=== PATIENT | male | born 1935 | race Caucasian/White ===

== ENCOUNTER → 2019-11-01 12:24 | Outpatient (BNVA) | payer MEDICARE, OTHER, SELFPAY | PROVIDERS: Family Provider Family Medicine; PCP Family Medicine; Visit Provider Urology | DX: R97.20 Elevated prostate specific antigen [PSA] (principal) | CPT/HCPCS: 84153 ==

== ENCOUNTER → 2020-11-17 09:19 | Outpatient (BNVA) | payer MEDICARE, OTHER, SELFPAY | PROVIDERS: Family Provider Family Medicine; PCP Nurse Practitioner Family; Visit Provider Urology | DX: R97.20 Elevated prostate specific antigen [PSA] (principal) | CPT/HCPCS: 84153 ==

== ENCOUNTER → 2021-01-14 09:09 | Outpatient (BNVA) | payer MEDICARE, OTHER, SELFPAY | PROVIDERS: Family Provider Family Medicine; PCP Registered Nurse; Visit Provider Registered Nurse | DX: I25.10 Atherosclerotic heart disease of native coronary artery without angina pectoris (principal); E11.9 Type 2 diabetes mellitus without complications; I10 Essential (primary) hypertension; I48.19 Other persistent atrial fibrillation | CPT/HCPCS: 80053; 83036; 85025 ==

== ENCOUNTER → 2021-03-05 16:32 | Outpatient (BNVA) | payer MEDICARE, OTHER, SELFPAY | PROVIDERS: Family Provider Family Medicine; PCP Registered Nurse; Visit Provider Nurse Practitioner Family | DX: R33.9 Retention of urine, unspecified (principal); R39.15 Urgency of urination | CPT/HCPCS: 81003; 87086 ==

== ENCOUNTER 2021-07-21 13:42 | Emergency (ER) | payer MEDICARE, OTHER, SELFPAY ==
[2021-07-21 13:52] VITALS: BP 168/118; PULSE 118; RESP 21; TEMP 36.6; O2SAT 96; BMI 25.8
--- NOTE | 2021-07-21 13:54 | CT_ITS ---
WS: [id number] CT HEAD TECHNIQUE: Noncontrast CT of the head obtained from the skullbase to the vertex. CLINICAL INFORMATION: TIA COMPARISON: CT 2017 DLP: 1616.[address] scans at [facility] use at least one of these dose optimization techniques: automated e xposure control; mA and/or kV adjustment per patient size (includes targeted exams where dose is matc hed to clinical indication); or iterative reconstruction. FINDINGS: No evidence of intracranial hemorrhage or mass effect. Ventricular system and basal cisterns are dumont nt. Moderate small vessel changes with moderate parenchymal volume loss. 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 Intracranial vascular calcification. No extra-axial fluid collections. No evidence of mass or mass effect. Chronic opacification right sphenoid sinus and posterior ethmoid air cells. Mastoid air cells well ae rated. CT/CT head wo con* [id number] IMPRESSION: 1. No evidence of intracranial hemorrhage or mass effect. 2. Moderate small vessel changes. Moderate parenchymal volume loss. 3. Chronic lacunar infarcts left thalamus and left caudate. 4. No acute intracranial findings.
--- NOTE | 2021-07-21 13:55 | ECG_ITS ---
[facility] Test Date: 2021-07-21 Pat Name: Enrique Modi Department: Room: Gender: Male Eclectic Doctor: : 1935 Requested By: Jez Orona Order Number: [id number] Marlon MD: Alycia Stinson M.D. Measurements Intervals [place] Rate: 75 P: 56 [place]: 197 QRS: 42 QRSD: 85 T: 68 QT: 409 QTc: 458 Interpretive Statements SINUS RHYTHM NONSPECIFIC ST & T-WAVE ABNORMALITY Compared to ECG 11/05/2014 13:15:28 Myocardial infarct finding no longer present Possible ischemia no longer present T-wave abnormality still present Electronically Signed On 07-21-2021 17:54:29 GUITAR TEACHER by Alycia Stinson M.D. [id number]
[2021-07-21] MEDS: enalaprilat 1.25 mg/mL Inj IVP (14:09)
[2021-07-21 14:14] LABS: Basophils % 0.6 %; Eosinophils # 0.1 10^3/uL (0.0-0.8); Eosinophils % 1.3 %; Hematocrit 39.8 % (42.0-52.0); Hemoglobin 12.4 g/dL (11.7-16.6); Lymphocytes # 1.1 10^3/uL (0.8-4.8); Lymphocytes % 15.5 %; Mean Corpuscular HGB Conc 31.2 g/dL (30.0-36.0); Mean Corpuscular Volume 83.4 fl (80-94); Mean Platelet Volume 12.3 fL (7.4-10.4); Monocytes # 0.6 10^3/uL (0.2-0.9); Monocytes % 7.8 %; Neutrophils # 5.29 10^3/uL (1.8-7.7); Neutrophils % 74.5 %; Nucleated Red Blood Cells % 0 %; Platelet Count 231 10^3/cmm (130-400); Red Blood Count 4.77 10^6/uL (4.1-5.3); Red Cell Distribution Width 14.6 % (12.1-15.1); White Blood Count 7.1 10^3/uL (4.0-10.0)
--- NOTE | 2021-07-21 14:15 | PC.NURSE ---
PT PLACED ON CONTINUOUS SPO2, NIBP, AND CM.
--- NOTE | 2021-07-21 14:16 | PC.NURSE ---
PT TO CT VIA STRETCHER AND END FRAZER.
[2021-07-21 14:24] LABS: Add Urine Microscopic? NO; Charge for UA Resulting for Rev
[2021-07-21 14:29] LABS: Bilirubin Urine Neg (Negative); Blood Urine Neg (Negative); Glucose Urine UA Norm (Normal); Ketones Urine Negative (Negative); Leukocyte Esterase Urine Negative (Negative); Nitrate Urine Negative (Negative); Protein Urine Neg (Negative); Urine Appearance Clear (CLEAR); Urine Color Yellow (Yellow); Urobilinogen Urine Norm (Negative); pH Urine 7 (5-7)
[2021-07-21 14:36] LABS: Slide Review Slide Review Perform
[2021-07-21 14:37] LABS: Alanine Aminotransferase 8 U/L (0-41); Albumin Level 4.3 g/dL (3.5-5.2); Alkaline Phosphatase 71 IU/L (40-130); Aspartate Amino Transferase 13 U/L (0-40); Blood Urea Nitrogen 15 mg/dL (8-23); Carbon Dioxide 21 mmol/L (22-29); Chloride 105 mmol/L (98-107); Creatine Phosphokinase 63 U/L (39-308); Creatinine Clr Calc Pharmacy 74.3349; Globulin 2.6 g/dL (1.3-4.6); Glucose 98 mg/dL (65-115); Potassium 4.7 mmol/L (3.5-5.1); Total Bilirubin 0.4 mg/dL (0.15-1.2); Total Protein 6.9 g/dL (6.6-8.7)
[2021-07-21 14:38] LABS: Troponin(5th) Baseline 21 ng/L (0-15)
--- NOTE | 2021-07-21 14:46 | PC.NURSE ---
REPORT GIVEN TO MIREYA BROWN ASSUMED CARE.
[2021-07-21 14:48] LABS: Anion Gap 18.7 (5-19); Osmolality Calculated 291 mOsm/kg (285-295); Sodium 140 mmol/L (136-145)
[2021-07-21 14:54] VITALS: BP 178/88; PULSE 74; RESP 18; O2SAT 97
--- NOTE | 2021-07-21 15:10 | W.ED.NEUROSD ---
HPI - Neuro Symptoms/Deficit General: Chief Complaint: Altered Mental Status Stated Complaint: TIA Time Seen by Provider: 07/21/21 13:50 Source: patient History of Present Illness: HPI Narrative: 86-year-old male presents emergency room via EMS. At about 1239 a feeling of some left-sided facial droop and right arm and leg weakness. EMS was called the time he arrived here his symptoms had completely resolved. His blood sugar was 135 his blood pressure was elevated. Is able to answer all questions appropriately and has a completely normal exam. Onset (ago): hour(s) Last Observed Normal: 12:39 Timing confirmed by: family member Location: left face, right arm, left leg and right leg Severity: mild Quality: weak Relieving factors: time Exacerbating factors: none Associated symptoms: Deny chest pain, cough, diaphoresis, fevers/chills, headache(s), anorexia, malaise, seizures, short of breath, syncope, tingling, vertigo, vomiting or weakness Treatments Prior to Arrival: none Review of Systems Const: Denies: malaise or diaphoresis ENMT: Denies: throat pain, ear or mastoid pain, nasal discharge or nasal congestion Card: Denies: chest pain or syncope Resp: Denies: dyspnea, productive cough or non-productive cough GI: Denies: vomiting : Denies: flank pain, dysuria, urinary frequency or urinary urgency Skin/Breast: Denies: rash or pruritus Neuro: Denies: headache(s) or vertigo PFS ED PFSH: Medical History Atrial fibrillation Diabetes Elevated PSA Essential hypertension Gross hematuria History of nonmelanoma skin cancer Incomplete bladder emptying Surgical History S/P cataract extraction S/P placement of cardiac pacemaker Family History Father , 57 No problems noted. Mother , 59 No problems noted. Social History Alcohol intake: never Adopted: No Caregiver/support person: No Lives independently: Yes Marital status: / Current occupational status: retired History of recent travel: No Current gender identity: Male NIH stroke score NIHSS: Level Of Consciousness - 1a: 0 Level Of Consciousness Questions - 1b: Both Correct Level Of Consciousness Commands - 1c: Both Correct Best Gaze - 2: Normal Visual Almanza - 3: No Visual Loss Facial Palsy - 4: Normal Motor Arm Right - 5: No Drift Motor Arm Left - 5: No Drift Motor Leg Right - 6: No Drift Motor Leg Left - 6: No Drift Limb Ataxia - 7: Absent Sensory - 8: Normal Best Language - 9: No Aphasia Dysarthia - 10: Normal Extinction And Inattention - 11: 0 Score: Total Score: 0 Physical Exam Const: COMMON NORMALS: no acute distress GENERAL APPEARANCE: cooperative and comfortable ORIENTATION/CONSCIOUSNESS: Yes awake, Yes oriented to person, Yes oriented to place and Yes oriented to time HENMT: COMMON NORMALS: normocephalic, atraumatic, hearing grossly normal bilaterally, external ears normal, EAC's normal, TM's normal bilaterally, Normal nasal mucous membranes and turbinates present, moist oral mucous membranes and oropharynx normal HEAD & SCALP: normocephalic and atraumatic NOSE: Normal nasal mucous membranes and turbinates present EXTERNAL EAR: Yes external ears normal EXTERNAL AUDITORY CANAL: EAC's normal TYMPANIC MEMBRANE: TM's normal bilaterally Neck/C-Spine: COMMON NORMALS: no JVD Resp: COMMON NORMALS: normal respiratory effort, No retractions, No use of accessory muscles and clear to auscultation bilaterally AUSCULTATION: clear to auscultation bilaterally Cardio: COMMON NORMALS: no JVD, regular rate, regular rhythm and No murmurs present (Cardio) RATE: regular rate RHYTHM: regular rhythm GI: COMMON NORMALS: Soft to palpation and No hepatosplenomegaly present AUSCULTATION: Yes normoactive bowel sounds PALPATION: Yes Soft to palpation, No Tenderness to palpation present (GI), No Guarding due to palpation present (GI) and Yes No hepatosplenomegaly present Extremity: COMMON NORMALS: normal to inspection, capillary refill normal, no clubbing, cyanosis or edema, no calf tenderness and no pedal edema Neuro: SENSORIUM/ORIENTATION: Yes oriented to person, Yes oriented to place and Yes oriented to time Skin: COMMON NORMALS: no rashes or lesions noted GENERAL SKIN EXAM: no rashes or lesions noted Course Vital Signs: Vital signs: Vital Signs Temperature 97.8 F 07/21/21 13:52 Pulse Rate 69 07/21/21 17:44 Respiratory Rate 18 07/21/21 17:44 Blood Pressure 174/95 07/21/21 17:44 Pulse Oximetry 97 07/21/21 17:44 MDM - Neuro Symptoms/Deficit MDM Narrative: Medical decision making narrative: Symptoms completely resolved at this point. Will discharge home on amlodipine 5 mg daily again have him increase the metoprolol to 50 mg daily. Like him to follow-up with his primary care doctor within the next week. Return if he has further problems. (At the time I signed the chart and noted that the Toprol-XL had appeared on the discharge instructions but was not on the ER note itself. I added to the note. It is present on the original discharge instructions was added to show in the note of medication change that was made.) Lab Data: Labs: Lab Results 07/21/21 07/21/21 07/21/21 14:04 14:04 14:04 WBC 7.1 10^3/uL 10^3/ uL (4.0-10.0) RBC 4.77 10^6/uL 10^6 /uL (4.1-5.3) Hgb 12.4 g/dL g/dL (11.7-16.6) Hct 39.8 % L % (42.0-52.0) MCV 83.4 fl fl (80-94) MCH 26.0 pg L pg (28.0-34.0) MCHC 31.2 g/dL g/dL (30.0-36.0) RDW 14.6 % % (12.1-15.1) Plt Count 231 10^3/cmm 10^3 /cmm (130-400) MPV 12.3 fL H fL (7.4-10.4) Neut % (Auto) 74.5 % % Lymph % (Auto) 15.5 % % [place] % (Auto) 7.8 % % Eos % (Auto) 1.3 % % Baso % (Auto) 0.6 % % Neut # (Auto) 5.29 10^3/uL 10^3 /uL (1.8-7.7) Lymph # (Auto) 1.1 10^3/uL 10^3/ uL (0.8-4.8) [place] # (Auto) 0.6 10^3/uL 10^3/ uL (0.2-0.9) Eos # (Auto) 0.1 10^3/uL 10^3/ uL (0.0-0.8) Baso # (Auto) 0.0 10^3/uL 10^3/ uL (0.0-0.1) Nucleated RBC % (a uto) 0 % % Nucleated RBCs # 0.0 /100WBC /100W BC Sodium 140 mmol/L mmol/L (136-145) Potassium 4.7 mmol/L mmol/L (3.5-5.1) Chloride 105 mmol/L mmol/L (98-107) Carbon Dioxide 21 mmol/L L mmol/ L (22-29) Anion Gap 18.7 (5-19) BUN 15 mg/dL mg/dL (8-23) Creatinine 0.8 mg/dL mg/dL (0.7-1.2) GFR Calculation Not Reportable Glucose 98 mg/dL mg/dL (65-115) Calculated Osmolal ity 291 mOsm/kg mOsm/ kg (285-295) Calcium 9.0 mg/dL mg/dL (8.5-10.5) Total Bilirubin 0.4 mg/dL mg/dL (0.15-1.2) AST 13 U/L U/L (0-40) ALT 8 U/L U/L (0-41) Alkaline Phosphata se 71 IU/L IU/L (40-130) Creatine Kinase 63 U/L U/L (39-308) Troponin T Baselin e 21 ng/L H ng/L (0-15) Troponin T 120 Min bobo Delta Troponin T Total Protein 6.9 g/dL g/dL (6.6-8.7) Albumin 4.3 g/dL g/dL (3.5-5.2) Globulin 2.6 g/dL g/dL (1.3-4.6) Urine Color Urine Appearance Urine pH Ur Specific Gravit y Urine Protein Urine Glucose (UA) Urine Ketones Urine Blood Urine Nitrate Urine Bilirubin Urine Urobilinogen Ur Leukocyte Kita ase 07/21/21 07/21/21 14:13 16:08 WBC RBC Hgb Hct MCV MCH MCHC RDW Plt Count MPV Neut % (Auto) Lymph % (Auto) [place] % (Auto) Eos % (Auto) Baso % (Auto) Neut # (Auto) Lymph # (Auto) [place] # (Auto) Eos # (Auto) Baso # (Auto) Nucleated RBC % (a uto) Nucleated RBCs # Sodium Potassium Chloride Carbon Dioxide Anion Gap BUN Creatinine GFR Calculation Glucose Calculated Osmolal ity Calcium Total Bilirubin AST ALT Alkaline Phosphata se Creatine Kinase Troponin T Baselin e Troponin T 120 Min bobo 20.30 ng/L H ng/L (0-15) Delta Troponin T -0.70 ABS# L ABS# (0-10) Total Protein Albumin Globulin Urine Color Yellow (Yellow) Urine Appearance Clear (CLEAR) Urine pH 7 (5-7) Ur Specific Gravit y 1.000 L (1.005-1.030) Urine Protein Neg (Negative) Urine Glucose (UA) Norm (Normal) Urine Ketones Negative (Negative) Urine Blood Neg (Negative) Urine Nitrate Negative (Negative) Urine Bilirubin Neg (Negative) Urine Urobilinogen Norm mg/dL mg/dL (Negative) Ur Leukocyte Kita ase Negative (Negative) Discharge Plan Discharge Patient Disposition: Home Clinical Impression: Accelerated hypertension, TIA (transient ischemic attack) Condition: Stable Prescriptions: New amlodipine 5 mg tablet 5 mg PO DAILY Qty: 30 RF: 0 Toprol XL 50 mg tablet extended release 24 hr 50 mg PO DAILY Qty: 30 RF: 0 Discontinued metoprolol succinate 25 mg tablet extended release 24 hr 25 mg PO DAILY Qty: 90 RF: 3 No Action Complete Multivitamin Tablet 1 tab PO DAILY RF: 0 lovastatin 40 mg tablet 80 mg PO .HS RF: 0 gabapentin 300 mg capsule 600 mg PO .HS RF: 0 magnesium oxide,aspartate,citr 400 mg magnesium capsule PO RF: 0 calcium citrate 250 mg calcium tablet 250 mg PO DAILY RF: 0 ascorbic acid (vitamin C) 500 mg capsule PO RF: 0 omeprazole 10 mg capsule,delayed release(DR/EC) 10 mg PO DAILY RF: 0 sotalol 160 mg tablet 160 mg PO BID Qty: 135 RF: 3 metoprolol succinate 25 mg tablet extended release 24 hr 25 mg PO DAILY RF: 0 Xarelto 20 mg tablet See Rx Instructions .ROUTE .COMPLEX Qty: 90 RF: 3 Januvia 50 mg tablet 50 mg PO DAILY Qty: 90 RF: 1 mupirocin 2 % ointment 1 applic topical TID Qty: 22 RF: 1 valsartan 160 mg tablet 160 mg PO BID Qty: 180 RF: 3 Discharge Orders: Discharge ED (Routine); Ordered 07/21/21 Ordered By: Jez Garcia Referrals: Aysha Goff FNP [Primary Care Provider] - Patient Instructions: Opioid Safety Activity Restrictions/Additional Instructions: Follow-up with your primary care doctor within the next 3 days to reevaluate blood pressure. Coding Level of Care Code ED Tubing Mill Setter for Srinivasa Fwd Exam Comprehensive
--- NOTE | 2021-07-21 15:55 | ECG_ITS ---
[facility] Test Date: 2021-07-21 Pat Name: Enrique Modi Department: Room: Gender: Male Drone Operator: : 1935 Requested By: Jez Orona Order Number: [id number] Marlon MD: Alycia Stinson M.D. Measurements Intervals [place] Rate: 67 P: 57 [place]: 192 QRS: 48 QRSD: 89 T: 72 QT: 406 QTc: 431 Interpretive Statements SINUS RHYTHM WITH OCCASIONAL SUPRAVENTRICULAR PREMATURE COMPLEXES POSSIBLE LEFT ATRIAL ENLARGEMENT [-0.1mV P-WAVE IN V1/V2] NONSPECIFIC ST & T-WAVE ABNORMALITY Compared to ECG 07/21/2021 14:44:32 No significant changes Electronically Signed On 07-21-2021 17:59:03 ARCHIVAL RECORDS CLERK by Alycia Stinson M.D. [id number]
[2021-07-21] MEDS: amlodipine 10 mg Tablet PO (16:11)
[2021-07-21] MEDS: metoprolol succinate ER (24 HR) 50 mg Tablet 25 MG PO (16:12)
[2021-07-21 17:44] VITALS: BP 174/95; PULSE 69; RESP 18; O2SAT 97
== END 2021-07-21 17:25 | disposition home or self-care (01) ==
PROVIDERS: Emergency Provider Family Medicine; PCP Nurse Practitioner Family
DX: G45.9 Transient cerebral ischemic attack, unspecified (principal); I10 Essential (primary) hypertension; E11.9 Type 2 diabetes mellitus without complications; Z95.0 Presence of cardiac pacemaker
CPT/HCPCS: 70450; 80053; 81003; 82550; 84484; 85025; 93005; 96374; 99283; J3490

== ENCOUNTER 2021-09-17 11:10 | Emergency (ER) | payer MEDICARE, OTHER, SELFPAY ==
[2021-09-17 11:24] VITALS: PULSE 102; RESP 16; TEMP 36.3; O2SAT 100; BMI 24.3
--- NOTE | 2021-09-17 11:28 | ECG_ITS ---
[facility] Test Date: 2021-09-17 Pat Name: Enrique Modi Department: Room: Gender: Male Pillow Filler: : 1935 Requested By: Terrence Wolfe Order Number: [id number] Mason MD: Alycia Stinson M.D. Measurements Intervals [place] Rate: 113 P: [place]: QRS: 51 QRSD: 90 T: 38 QT: 321 QTc: 442 Interpretive Statements ATRIAL FIBRILLATION WITH RAPID VENTRICULAR RESPONSE MODERATE ST DEPRESSION [0.05+ mV ST DEPRESSION] Compared to ECG 07/21/2021 16:15:15 ST (T wave) deviation now present Sinus rhythm no longer present T-wave abnormality no longer present Electronically Signed On 09-17-2021 21:58:33 LEAD PAINTER by Alycia Stinson M.D. [id number]
--- NOTE | 2021-09-17 11:28 | XRR_ITS ---
PROCEDURE INFORMATION: Exam: XR Chest Exam date and time: 09/17/2021 11:28 AM Age: 86 years old Clinical indication: Other: Syncope TECHNIQUE: Imaging protocol: XR of the chest. Views: 1 view. COMPARISON: CR Chest 2 views* [id number] 12/07/2018 9:41 AM FINDINGS: Tubes, catheters and devices: A permanent sequential pacemaker appears intact. Lungs: Unremarkable. No consolidation. Pleural spaces: Unremarkable. No pleural effusion. No pneumothorax. Heart/Mediastinum: Unremarkable. No cardiomegaly. Bones/joints: Unremarkable. XR/XR chest 1V portable [id number] IMPRESSION: No significant cardiopulmonary abnormality.
--- NOTE | 2021-09-17 11:28 | CT_ITS ---
WS: [id number] CT HEAD NONCONTRAST HISTORY: Patient fell. Antiplatelet usage. TECHNIQUE: Contiguous axial imaging performed through the brain in 2.5 mm imaging. Bone and soft tiss ue windows. Sagittal and coronal reformats reviewed. All CT scans at [facility] use at least one of these dose optimization techniques: automated exposure control; mA and/or kV adjustment per pa tient size (includes targeted exams where dose is matched to clinical indication); or iterative recon struction. DLP: 909.76 mGy.cm COMPARISON: 07/21/2021 No acute intracranial hemorrhage, midline shift or mass effect. Moderate small vessel ischemic changes within the white matter. Similar to the prior examination. Sma ll lacunar infarcts in the LEFT caudate head and LEFT thalamus. Mild atrophy. Ventricles: Very mild ventriculomegaly as on the basis of atrophy. Mild atherosclerotic changes within the intracranial carotid arteries. Heavy calcification along the anterior interhemispheric falx. Paranasal sinuses: Mild mucoperiosteal thickening throughout the sinuses. More extensive opacificatio n of the RIGHT sphenoid sinus. Mastoid air cells: Well pneumatized. Calvarium and scalp: No skull fracture. There is mild induration in the scalp over the posterior high LEFT parietal region which may be an area of recent trauma. CT/CT head wo con* [id number] IMPRESSION: 1. No acute intracranial hemorrhage or edema. 2. Atrophy and moderate chronic microvascular ischemic changes. Similar to the prior study of 07/21/2021. 3. No skull fracture. 4. 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
--- NOTE | 2021-09-17 11:32 | W.ED.DIZZY ---
HPI - Dizziness General: Chief Complaint: Dizziness Stated Complaint: FALL, DIZZY, WEAK, UTI Time Seen by Provider: 09/17/21 11:28 Source: patient and EMS Mode of arrival: EMS Limitations: no limitations History of Present Illness: HPI Narrative: This patient was transported to our emergency department via EMS from home. He apparently lives by himself. The patient states that he has been ill for the last week or so initially with some diarrhea and some vomiting. He states he is also had 2-3 falls over that period of time without any prodrome, palpitation, chest pain etc. He states the last episode occurred this morning he states he was bending forward attempting to get closing out of the dryer in his home and fell forward. He states he hit his head but did not suffer a loss of consciousness. He states she fell a couple of days ago and hit his head and the back with a similar episode that he just apparently found himself on the floor. He does have a history of a recent UTI that was treated with some medication and there is a question of whether that is contributed to his initial GI symptoms. He is no longer taking that medication. He denies any fevers or chills. There is also been family members within the last 10 days that have had COVID-19 but none of them live in his home. He has a history of atrial fibrillation and has a pacemaker. Denies any current tobacco use he did smoke in the past but quit approximately 30 years ago. No other surgeries other than his pacemaker insertion. He states he did eat chicken noodle soup this morning and has had no emesis since yesterday. He denies headache, any focal neurologic symptoms etc. MD elicited complaint: lightheadedness Pertinent past history: pacemaker Timing: sudden onset Associated symptoms: Reports syncope, vomiting and weakness; Denies chest pain, chills, headache(s) or palpitations Associated neuro symptoms: Deny numbness in extremities Review of Systems Const: Reports: change in appetite; Denies: fever(s), chills or body aches Eyes: Denies: change in vision or eye discomfort ENMT: Denies: throat pain or odynophagia Card: Reports: irregular heart rhythm and syncope; Denies: chest pain, palpitations, lightheadedness or orthopnea Resp: Denies: productive cough, non-productive cough, wheezing or stridor GI: Reports: vomiting and diarrhea; Denies: abdominal pain, hematemesis, hematochezia or melena : Denies: flank pain, difficulty urinating, dysuria or urinary frequency Musc: Denies: neck pain, back pain, extremity pain or extremity swelling Skin/Breast: Denies: rash or erythema Neuro: Reports: frequent falls; Denies: headache(s), numbness in extremities, weakness in extremities, vertigo, Slurred speech present or seizure-like activity Endo: Denies: polyuria or polydipsia Isidro/Lymph: Reports: easy bruising PFSH ED PFSH: Medical History Atrial fibrillation Diabetes Elevated PSA Essential hypertension Gross hematuria History of nonmelanoma skin cancer Incomplete bladder emptying Surgical History S/P cataract extraction S/P placement of cardiac pacemaker Family History Father , 57 No problems noted. Mother , 59 No problems noted. Social History Alcohol intake: never Adopted: No Caregiver/support person: No Lives independently: Yes Marital status: / Current occupational status: retired History of recent travel: No Current gender identity: Male Physical Exam Narrative: EXAM NARRATIVE: Patient is elderly but makes good eye contact. He answers questions in a goal-directed fashion with accurate responses. Const: COMMON NORMALS: no acute distress, average body habitus, patient oriented x3 and alert HENMT: COMMON NORMALS: normocephalic and Normal external nose present HEAD & SCALP: normocephalic and abrasion (He has no a linear abrasion to his left upper occiput. There is no step-of) FACE & SINUS: normal facial exam and face symmetric; sinuses not nontender NOSE: Normal external nose present GENERAL EAR: other (Bilateral hearing aids) MOUTH: Normal oral and palatal mucosa present Eye: COMMON NORMALS: Equal, round and reactive pupils present, EOMs intact bilaterally, conjunctivae normal and no scleral icterus CONJUNCTIVA: Yes conjunctivae normal PUPIL: Yes Equal, round and reactive pupils present Neck/C-Spine: COMMON NORMALS: full ROM (No midline tenderness. No step-off. Able to range his neck 45 degrees lef), no lymphadenopathy, supple, no meningeal signs, no JVD and No carotid bruits Chest: COMMONS NORMALS: normal inspection of the chest and normal palpation of entire chest wall Resp: COMMON NORMALS: normal respiratory effort, No retractions, No use of accessory muscles and clear to auscultation bilaterally EFFORT & INSPECTION: Yes able to speak in complete sentences AUSCULTATION: clear to auscultation bilaterally Cardio: COMMON NORMALS: no JVD GI: COMMON NORMALS: Normal to inspection, nondistended, normoactive bowel sounds present, Soft to palpation, non-tender, No hepatosplenomegaly present and no masses PALPATION: Yes Soft to palpation and Yes No hepatosplenomegaly present PERCUSSION: normal to percussion : COMMON NORMALS: Yes no CVA tenderness BLADDER/KIDNEY EXAM: Yes no CVA tenderness Back/Pelvis: COMMON NORMALS: no CVA tenderness, thoracic and lumbar spine normal to inspection, no thoracic nor lumbar tenderness and thoraco-lumbar ROM normal Extremity: COMMON NORMALS: normal to inspection, full ROM, capillary refill normal, no joint enlargement, no calf tenderness and no pedal edema Neuro: COMMON NORMALS: patient oriented x3, moves all extremities, no focal motor deficits and no sensory deficits noted SENSORIUM/ORIENTATION: Yes alert MENINGEAL SIGNS: Yes no meningeal signs SPEECH: speech normal Course Reevaluation(s): Reevaluation #1: Patient's monitor is noted to be in sinus rhythm at this time. Patient received 2 g of magnesium IV. Time: 13:33 Reevaluation #2: Patient continues to be in sinus rhythm his vital signs are otherwise well controlled. He has findings today are reassuring. No findings to suggest significant anemia or other electrolyte abnormalities. And initially his rhythm was atrial fib with RVR but after magnesium infusion he is now in a controlled rhythm. He has received IV hydration as well. Laboratories are reassuring. No evidence of significant anemia or electrolyte abnormality. Repeat troponins are trending downward. Initial troponin was slightly elevated likely due to his rapid ventricular response. No evidence to suggest ACS at this time. CT scan is reassuring without evidence of intracranial hemorrhage, etc. I believe possibly some of his symptoms may have been related to his atrial fibrillation which may have not been well controlled due to his recent GI illness contributing to either occult hypomagnesemia or other poor absorption of his other medications. His urine has been cultured but no indication for antibiotic treatment today. We will go ahead and ambulate to ensure stability but I think you be able to be discharged for outpatient management. Time: 15:51 Vital Signs: Vital signs: Vital Signs Temperature 97.3 F L 09/17/21 11:24 Pulse Rate 113 H 09/17/21 12:24 Respiratory Rate 17 09/17/21 12:24 Blood Pressure 203/95 09/17/21 15:24 Pulse Oximetry 97 09/17/21 12:24 MDM - Dizziness MDM Narrative Medical decision making narrative: As noted patient's work-up today is unremarkable for any thing to suggest ongoing emergency medical condition such as ACS etc. No evidence of intracranial hemorrhage or traumatic injury. He is subjectively and objectively improved with his rate now controlled and he ambulated about the emergency department without difficulty. Believe that he is stable for discharge. We discussed return precautions in detail with the patient. He voiced understanding was appreciative of care. Lab Data Result diagrams: 09/17/21 11:54 09/17/21 11:54 Labs: Radiology Impressions Chest X-Ray 09/17/21 11:28 IMPRESSION: No significant cardiopulmonary abnormality. Head CT 09/17/21 11:28 IMPRESSION: 1. No acute intracranial hemorrhage or edema. 2. Atrophy and moderate chronic microvascular ischemic changes. Similar to the prior study of 07/21/2021. 3. No skull fracture. 4. 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 Laboratory Results WBC 10.2 10^3/uL (4.0-10.0) H 09/17/21 11:54 RBC 4.41 10^6/uL (4.1-5.3) 09/17/21 11:54 Hgb 11.2 g/dL (11.7-16.6) L 09/17/21 11:54 Hct 35.4 % (42.0-52.0) L 09/17/21 11:54 MCV 80.3 fl (80-94) 09/17/21 11:54 MCH 25.4 pg (28.0-34.0) L 09/17/21 11:54 MCHC 31.6 g/dL (30.0-36.0) 09/17/21 11:54 RDW 15.8 % (12.1-15.1) H 09/17/21 11:54 Plt Count 204 10^3/cmm (130-400) 09/17/21 11:54 MPV 12.6 fL (7.4-10.4) H 09/17/21 11:54 Neut % (Auto) 86.7 % 09/17/21 11:54 Lymph % (Auto) 5.6 % 09/17/21 11:54 [place] % (Auto) 6.1 % 09/17/21 11:54 Eos % (Auto) 0.6 % 09/17/21 11:54 Baso % (Auto) 0.3 % 09/17/21 11:54 Neut # (Auto) 8.84 10^3/uL (1.8-7.7) H 09/17/21 11:54 Lymph # (Auto) 0.6 10^3/uL (0.8-4.8) L 09/17/21 11:54 [place] # (Auto) 0.6 10^3/uL (0.2-0.9) 09/17/21 11:54 Eos # (Auto) 0.1 10^3/uL (0.0-0.8) 09/17/21 11:54 Baso # (Auto) 0.0 10^3/uL (0.0-0.1) 09/17/21 11:54 Nucleated RBC % (auto) 0 % 09/17/21 11:54 Nucleated RBCs # 0.0 /100WBC 09/17/21 11:54 Sodium 130 mmol/L (136-145) L 09/17/21 11:54 Potassium 4.3 mmol/L (3.5-5.1) 09/17/21 11:54 Chloride 96 mmol/L (98-107) L 09/17/21 11:54 Carbon Dioxide 21 mmol/L (22-29) L 09/17/21 11:54 Anion Gap 17.3 (5-19) 09/17/21 11:54 BUN 19 mg/dL (8-23) 09/17/21 11:54 Creatinine 1.0 mg/dL (0.7-1.2) 09/17/21 11:54 GFR Calculation Not Reportable 09/17/21 11:54 Glucose 193 mg/dL (65-115) H 09/17/21 11:54 Calculated Osmolality 278 mOsm/kg (285-295) L 09/17/21 11:54 Calcium 8.5 mg/dL (8.5-10.5) 09/17/21 11:54 Total Bilirubin 0.4 mg/dL (0.15-1.2) 09/17/21 11:54 AST 16 U/L (0-40) 09/17/21 11:54 ALT 7 U/L (0-41) 09/17/21 11:54 Alkaline Phosphatase 78 IU/L (40-130) 09/17/21 11:54 Troponin T Baseline 18 ng/L (0-15) H 09/17/21 11:54 Troponin T 120 Minute 14.85 ng/L (0-15) 09/17/21 13:37 Delta Troponin T -3.15 ABS# (0-10) L 09/17/21 13:37 Total Protein 5.9 g/dL (6.6-8.7) L 09/17/21 11:54 Albumin 3.9 g/dL (3.5-5.2) 09/17/21 11:54 Globulin 2.0 g/dL (1.3-4.6) 09/17/21 11:54 Urine Color Yellow (Yellow) 09/17/21 14:45 Urine Appearance Clear (CLEAR) 09/17/21 14:45 Urine pH 5 (5-7) 09/17/21 14:45 Ur Specific [place] 1.025 (1.005-1.030) 09/17/21 14:45 Urine Protein Trace (Negative) 09/17/21 14:45 Urine Glucose (UA) Norm (Normal) 09/17/21 14:45 Urine Ketones 1+ (Negative) H 09/17/21 14:45 Urine Blood Neg (Negative) 09/17/21 14:45 Urine Nitrate Negative (Negative) 09/17/21 14:45 Urine Bilirubin 1+ (Negative) H 09/17/21 14:45 Urine Urobilinogen Norm mg/dL (Negative) 09/17/21 14:45 Ur Leukocyte Esterase Negative (Negative) 09/17/21 14:45 Urine RBC 0-4 /hpf (0-2) H 09/17/21 14:45 Urine WBC 0-4 /hpf (0-5) H 09/17/21 14:45 Ur Squamous Epith Cells 5-10 /hpf (0-5) H 09/17/21 14:45 Amorphous Sediment Not Reportable 09/17/21 14:45 Urine Bacteria 1+ /hpf (NONE) H 09/17/21 14:45 Coronavirus 229E (PCR) Not detected (NOT DETECT) 09/17/21 12:58 SARS-CoV-2 (PCR) Not detected (NOT DETECT) 09/17/21 12:58 SARS-CoV-2 Ag (Rapid) Cancelled 09/17/21 12:10 Imaging Data CXR: My impression: Chest x-ray reveals no evidence of acute disease. This is consistent with radiologic interpretation. CT Head: Radiologist's impression: Changes asNo evidence of intracranial hemorrhage, skull fracture etc. noted. EKG Data EKG 1: Interpretation: EKG shows a ventricular rate of 113 bpm consistent with atrial fibrillation with rapid ventricular response. Does have some nonspecific ST-T wave depression in lateral leads for through 6. EKG 2: Interpretation: Second EKG reveals now sinus rhythm at 75 bpm. Normal intervals normal axis. Mild nonspecific less than [address] depressions noted in the lateral leads. Discharge Plan Discharge Patient Disposition: Home Clinical Impression: Atrial fibrillation Condition: Stable Prescriptions: No Action lovastatin 40 mg tablet 80 mg PO .HS 0RF gabapentin 300 mg capsule 300 mg PO DAILY 0RF magnesium oxide,aspartate,citr 400 mg magnesium capsule 400 mg PO DAILY 0RF calcium citrate 250 mg calcium tablet 250 mg PO DAILY 0RF ascorbic acid (vitamin C) 500 mg capsule 500 mg PO DAILY 0RF omeprazole 10 mg capsule,delayed release(DR/EC) 10 mg PO DAILY 0RF sotalol 160 mg tablet 160 mg PO BID Qty: 135 3RF Complete Multi [id number] lh-axi-plk-mcg Tablet 1 tab PO DAILY 0RF tamsulosin 0.4 mg Capsule 0.4 mg PO DAILY 0RF amlodipine 5 mg Tablet 5 mg PO DAILY 0RF verapamil 120 mg capsule,ext rel. pellets 24 hr 120 mg PO DAILY 0RF valsartan 160 mg tablet 160 mg PO BID MDD SEE PHARMACY COMMENTS 0RF Januvia 50 mg tablet 50 mg PO DAILY 0RF Xarelto 20 mg tablet 20 mg PO QPM 0RF metformin 1,000 mg Tablet 1,000 mg PO BID 0RF nitroglycerin 0.4 mg Tablet, Sublingual 0.4 mg SUBLINGUAL Q5M PRN (Reason: Chest Pain) 0RF Rx Instructions: do not exceed 3 doses per episode Discharge Orders: Discharge ED (Routine); Ordered 09/17/21 Ordered By: Terrence Wolfe Referrals: Aysha Goff FNP [Primary Care Provider] - Discharge Diet: Advance as tolerated and Usual diet Discharge Activity: Resume usual activity Patient Instructions: Opioid Safety Activity Restrictions/Additional Instructions: Continue to take all your usual medications especially your magnesium. Ensure that you drink at least 4 to 6 glasses of water daily into addition to your usual fluids and dietary intake. Call your primary day care worker for a follow-up visit in the next 10 to 14 days. You are welcome to return to the emergency department at anytime for any worsening or new symptoms. Coding Level of Care Code ED Customer Service Representative for Srinivasa Carlson Exam Comprehensive
[2021-09-17 12:09] LABS: Basophils % 0.3 %; Eosinophils # 0.1 10^3/uL (0.0-0.8); Eosinophils % 0.6 %; Hematocrit 35.4 % (42.0-52.0); Hemoglobin 11.2 g/dL (11.7-16.6); Lymphocytes # 0.6 10^3/uL (0.8-4.8); Lymphocytes % 5.6 %; Mean Corpuscular HGB Conc 31.6 g/dL (30.0-36.0); Mean Corpuscular Hemoglobin 25.4 pg (28.0-34.0); Mean Corpuscular Volume 80.3 fl (80-94); Mean Platelet Volume 12.6 fL (7.4-10.4); Monocytes # 0.6 10^3/uL (0.2-0.9); Monocytes % 6.1 %; Neutrophils # 8.84 10^3/uL (1.8-7.7); Neutrophils % 86.7 %; Nucleated Red Blood Cells % 0 %; Platelet Count 204 10^3/cmm (130-400); Red Blood Count 4.41 10^6/uL (4.1-5.3); Red Cell Distribution Width 15.8 % (12.1-15.1); White Blood Count 10.2 10^3/uL (4.0-10.0)
--- NOTE | 2021-09-17 12:19 | PC.NURSE ---
report received from julio c BROWN. Pt states he is weak that he can not get up and down. states he is only dizzy when he moves. states he was getting laundry out and fell and hit his head on the wall. pt states he is on blood thinners. denies LOC. GCS is 15.
[2021-09-17] MEDS: sodium chloride 0.9% 1,000 ML 150 ML IV (12:23)
[2021-09-17 12:24] VITALS: BP 113/86; PULSE 113; RESP 17; O2SAT 97
[2021-09-17 12:28] LABS: Troponin(5th) Baseline 18 ng/L (0-15)
[2021-09-17 12:30] LABS: Alanine Aminotransferase 7 U/L (0-41); Albumin Level 3.9 g/dL (3.5-5.2); Alkaline Phosphatase 78 IU/L (40-130); Anion Gap 17.3 (5-19); Aspartate Amino Transferase 16 U/L (0-40); Blood Urea Nitrogen 19 mg/dL (8-23); Calcium 8.5 mg/dL (8.5-10.5); Carbon Dioxide 21 mmol/L (22-29); Chloride 96 mmol/L (98-107); Glucose 193 mg/dL (65-115); Osmolality Calculated 278 mOsm/kg (285-295); Potassium 4.3 mmol/L (3.5-5.1); Sodium 130 mmol/L (136-145); Total Bilirubin 0.4 mg/dL (0.15-1.2); Total Protein 5.9 g/dL (6.6-8.7)
[2021-09-17] MEDS: magnesium sulfate premix 2 GM/50 ML PIGGYBACK IV (13:51)
[2021-09-17 14:08] LABS: Adenovirus Not Detected (NOT DETECT); Chlamydia Pneumoniae Not Detected (NOT DETECT); Coronavirus 229E,HKU1,NL63,OC4 Not Detected (NOT DETECT); Human Metapneumovirus Not Detected (NOT DETECT); Human Rhinovirus/Enterovirus Not Detected (NOT DETECT); Influenza A Not Detected (NOT DETECT); Influenza A H1 Not Detected (NOT DETECT); Influenza A H1-2009 Not Detected (NOT DETECT); Influenza A H3 Not Detected (NOT DETECT); Influenza B Not Detected (NOT DETECT); Mycoplasma Pneumoniae Not Detected (NOT DETECT); Parainfluenza Virus Type 1 Not Detected (NOT DETECT); Parainfluenza Virus Type 2 Not Detected (NOT DETECT); Parainfluenza Virus Type 3 Not Detected (NOT DETECT); Parainfluenza Virus Type 4 Not Detected (NOT DETECT); Respiratory Syncytial Virus A Not Detected (NOT DETECT); Respiratory Syncytial Virus B Not Detected (NOT DETECT); SARS-COV-2 Not Detected (NOT DETECT)
[2021-09-17 14:11] LABS: Troponin 5 2HR 14.85 ng/L (0-15)
[2021-09-17 14:55] LABS: Troponin 5 2HR Delta -3.15 ABS# (0-10)
[2021-09-17 15:07] LABS: Specific Gravity, Urine 1.025 (1.005-1.030); Urine Appearance Clear (CLEAR); Urine Color Yellow (Yellow); pH Urine 5 (5-7)
[2021-09-17 15:08] LABS: Add Urine Microscopic? YES; Bilirubin Urine 1+ (Negative); Blood Urine Neg (Negative); Glucose Urine UA Norm (Normal); Ketones Urine 1+ (Negative); Leukocyte Esterase Urine Negative (Negative); Nitrate Urine Negative (Negative); Protein Urine Trace (Negative); Urobilinogen Urine Norm (Negative)
[2021-09-17 15:09] LABS: Add Urine Culture? No; Bacteria Urine 1+ /hpf; RBC Urine 0-4 /hpf (0-2); WBC Urine 0-4 /hpf (0-5)
[2021-09-17 15:24] VITALS: BP 203/95
[2021-09-17 16:45] VITALS: BP 176/88; PULSE 72; RESP 16; O2SAT 98
--- NOTE | 2021-09-17 17:30 | ECG_ITS ---
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 Measurements Intervals [place] Rate: 75 P: 65 DE: 187 QRS: 61 QRSD: 95 T: 61 QT: 379 QTc: 426 Interpretive Statements SINUS RHYTHM POSSIBLE LEFT ATRIAL ENLARGEMENT [-0.1mV P-WAVE IN V1/V2] MODERATE ST DEPRESSION [0.05+ mV ST DEPRESSION] Compared to ECG 09/17/2021 12:03:51 Atrial fibrillation no longer present ST (T wave) deviation still present Electronically Signed On 09-17-2021 22:10:30 SUPERVISOR INSPECTION ROOM by Alycia Stinson M.D. [id number]
== END 2021-09-17 16:46 | disposition home or self-care (01) ==
PROVIDERS: Emergency Provider Emergency Medicine; PCP Nurse Practitioner Family
DX: I48.91 Unspecified atrial fibrillation (principal); Z79.84 Long term (current) use of oral hypoglycemic drugs; E11.9 Type 2 diabetes mellitus without complications; I10 Essential (primary) hypertension; Z95.0 Presence of cardiac pacemaker
CPT/HCPCS: 70450; 71045; 80053; 81001; 84484; 85025; 87086; 87635; 93005; 96365; 99284; J3475; J7030

== ENCOUNTER 2021-10-02 09:25 | Outpatient (CLI) | payer MEDICARE, OTHER, SELFPAY ==
[2021-10-02 10:09] LABS: Basophils # 0.1 10^3/uL (0.0-0.1); Basophils % 0.7 %; Eosinophils # 0.1 10^3/uL (0.0-0.8); Eosinophils % 1.4 %; Hematocrit 35.2 % (42.0-52.0); Hemoglobin 10.9 g/dL (11.7-16.6); Lymphocytes # 1.3 10^3/uL (0.8-4.8); Lymphocytes % 15.5 %; Mean Corpuscular Volume 83.8 fl (80-94); Mean Platelet Volume 11.6 fL (7.4-10.4); Monocytes # 0.6 10^3/uL (0.2-0.9); Monocytes % 7.4 %; Neutrophils % 74.6 %; Nucleated Red Blood Cells % 0 %; Platelet Count 328 10^3/cmm (130-400); Red Cell Distribution Width 15.5 % (12.1-15.1); White Blood Count 8.6 10^3/uL (4.0-10.0)
== END 2021-10-02 09:26 | disposition home or self-care (01) ==
PROVIDERS: Nurse Practitioner Family; PCP Nurse Practitioner Family; Visit Provider Urology
DX: R31.0 Gross hematuria (principal)
CPT/HCPCS: 81003; 85025

== ENCOUNTER → 2021-10-14 07:59 | Outpatient (BNVA) | payer MEDICARE, OTHER, SELFPAY | PROVIDERS: PCP Nurse Practitioner Family; Visit Provider Nurse Practitioner Family | DX: R31.0 Gross hematuria (principal); R39.15 Urgency of urination | CPT/HCPCS: 81003 ==

== ENCOUNTER → 2021-11-06 08:22 | Outpatient (BNVA) | payer MEDICARE, OTHER, SELFPAY | PROVIDERS: PCP Nurse Practitioner Family; Visit Provider Internal Medicine Cardiovascular Disease | DX: R31.0 Gross hematuria (principal) | CPT/HCPCS: 81003; 88112 ==

== ENCOUNTER → 2021-11-19 13:34 | Outpatient (BNVA) | payer MEDICARE, OTHER, SELFPAY | PROVIDERS: PCP Nurse Practitioner Family; Visit Provider Internal Medicine | DX: I48.91 Unspecified atrial fibrillation (principal); I10 Essential (primary) hypertension; Z87.891 Personal history of nicotine dependence | CPT/HCPCS: 99214 ==

== ENCOUNTER → 2021-12-31 08:08 | Outpatient (BNVA) | payer MEDICARE, OTHER, SELFPAY | PROVIDERS: PCP Nurse Practitioner Family; Visit Provider Urology | DX: N41.9 Inflammatory disease of prostate, unspecified (principal); R39.15 Urgency of urination; R31.0 Gross hematuria | CPT/HCPCS: 99213 ==

== ENCOUNTER → 2022-02-05 08:23 | Outpatient (BNVA) | payer MEDICARE, OTHER, SELFPAY | PROVIDERS: PCP Nurse Practitioner Family; Visit Provider Internal Medicine Cardiovascular Disease | DX: Z45.010 Encounter for checking and testing of cardiac pacemaker pulse generator [battery] (principal) | CPT/HCPCS: 93280 ==

== ENCOUNTER → 2022-05-14 08:17 | Outpatient (BNVA) | payer MEDICARE, OTHER, SELFPAY | PROVIDERS: PCP Nurse Practitioner Family; Visit Provider Nurse Practitioner Family | DX: I48.91 Unspecified atrial fibrillation (principal); I10 Essential (primary) hypertension; Z87.891 Personal history of nicotine dependence | CPT/HCPCS: 99214 ==

== ENCOUNTER → 2022-05-28 09:14 | Outpatient (BNVA) | payer MEDICARE, OTHER, SELFPAY | PROVIDERS: PCP Nurse Practitioner Family; Visit Provider Internal Medicine | DX: Z45.010 Encounter for checking and testing of cardiac pacemaker pulse generator [battery] (principal) | CPT/HCPCS: 93280 ==

== ENCOUNTER → 2022-06-25 08:45 | Outpatient (BNVA) | payer MEDICARE, OTHER, SELFPAY | PROVIDERS: PCP Nurse Practitioner Family; Visit Provider Internal Medicine | DX: Z45.010 Encounter for checking and testing of cardiac pacemaker pulse generator [battery] (principal) | CPT/HCPCS: 93279 ==

== ENCOUNTER → 2022-07-05 11:09 | Outpatient (BNVA) | payer MEDICARE, OTHER, SELFPAY | PROVIDERS: PCP Nurse Practitioner Family; Visit Provider Internal Medicine Cardiovascular Disease | DX: Z45.010 Encounter for checking and testing of cardiac pacemaker pulse generator [battery] (principal); I48.91 Unspecified atrial fibrillation; E11.9 Type 2 diabetes mellitus without complications; Z87.891 Personal history of nicotine dependence | CPT/HCPCS: 36415; 80048; 85025; 85610; 86850; 86900; 99215 ==

== ENCOUNTER 2022-07-09 10:46 | Outpatient (CLI) | payer MEDICARE, OTHER, SELFPAY ==
[2022-07-09] VITALS (20 sets, daily range): BP systolic 145–219; BP diastolic 76–116; PULSE 60–71; RESP 11–28; TEMP 36.8–37; O2SAT 97–100; BMI 24.3
[2022-07-09 12:06] LABS: Glucose Point of Care 119 mg/dL (70-110)
--- NOTE | 2022-07-09 12:52 | W.PM.OPSUD ---
Surgery/Procedure H&P Update DATE OF PROCEDURE: July 09, 2022 DATE H&P PERFORMED: 07/05/22 H&P UPDATE INFORMATION: I have reviewed H&P completed within last 30 days, I have examined patient prior to procedure and No changes to prior documentation PREOP DIAGNOSIS: KATRINA PRIMARY INDICATION FOR PROCEDURE: AFIB/ Symptomatic bradycardia PLANNED PROCEDURE: Operation Date: 07/09/22 12:30 Proposed Procedures p Pacemaker Generator Change 19787,Z45.010,Z45.018,R53.83(Not Applicable) - Skyler Patel MD PATIENT REASSESSED PRIOR TO SEDATION, WITH NO CHANGE NOTED: Yes PHYSICAL EXAM: alert, oriented x 3, clear to auscultation bilaterally and regular rate & rhythm (irregularly irregular rhythm) AIRWAY EVAL/ANESTHESIA PLAN: normal airway, see other exam findings, ASA III, Monitored Anesthesia, Local Anesthesia, Risks, benefits & alternatives of sedation and/or procedure discussed and Patient agrees to continue as planned
--- NOTE | 2022-07-09 14:17 | PM.OP ---
Operative Report Date of procedure: July 09, 2022 Pre-op diagnosis: Preop Diagnosis KATRINA Procedure: PROCEDURE: PACEMAKER REVISION PREOPERATIVE DIAGNOSIS: Pacemaker elective replacement indication. POSTOPERATIVE DIAGNOSIS: Pacemaker elective replacement indication. ESTIMATED BLOOD LOSS: Around none COMPLICATIONS: None. BRIEF HISTORY: The patient is 87-year-old white male who had a permanent pacemaker implantation for intermittent atrial fibrillation/symptomatic bradycardia. The patient was found to have elective replacement indication, during routine office followup evaluation. For further management of patient's condition for the symptomatic bradycardia, the patient required a pacemaker revision. Patient required a dual-chamber pacemaker for symptom relief and the need for AV synchrony The procedure was explained to the patient and and his family in detail with the risks and benefits. The risks of bleeding, hematoma, vascular injury, infection and other concomitant complications were explained in detail, which the patient understood well and consented to proceed. PROCEDURES PERFORMED: 1. Explantation of the old pacemaker generator. 2. Implantation of the new generator. The patient brought to the Cardiac Main Entree Cook And Cashier. The left side of the neck and the subclavian area were cleaned and draped in a sterile fashion. 1% Xylocaine was used for local anesthetic agent. A 2 inch long incision was made just below the previous pacemaker scar. By sharp and blunt dissection, the pacemaker pocket was accessed. The old generator was delivered from the pocket. The generator was detached from the lead. The new Medtronic generator was attached to the lead. The pacemaker pocket was copiously irrigated with vancomycin solution. Complete hemostasis was achieved. The lead was positioned behind the generator and the generator was attached to the pectoralis fascia by suturing with 0 Surgilon. Sponge counts were confirmed. The pacemaker pocket was closed in layers. Skin was approximated using 4-0 Vicryl. EXPLANTED DEVICE: Pacemaker Generator: Brand: Adapta. Model number:[id number] Serial number: [id number]. Date of implant: 02/07/2013 IMPLANTED DEVICES: Ventricular Lead: Date of implantation: 02/07/2013 Model number: 5086/58 Serial number: [id number] Make: Medtronic. Atrial lead Date of implantation: 02/07/2013 Model number: 5076/52 Serial number: [id number] Make: Medtronic. Implanted Generator: Date of implantation : 07/09/2022 Brand: Paula Rosario. Model number: W1 DR 01 Serial number: [id number] Make: Medtronic Stimulation Threshold: The ventricular sensing was greater than 20 millivolts. Ventricular lead impedance was 608 ohms and the pacing threshold was 0.5 volts at 0.4 milliseconds. The atrial sensing was 1.9 millivolts. Atrial lead impedance was 399 ohms and the pacing threshold was 0.75 volts at 0.4 milliseconds. The pacemaker was set for AAIR /DDDR mode with an upper rate of 130 and a lower rate of 60. A pressure dressing was applied over the pacemaker site. The patient was transferred back to medical floor in stable condition. Sponge counts were correct.
[2022-07-09] MEDS: sodium chloride 0.9% 1,000 ML 75 ML IV (14:22)
[2022-07-09] MEDS: losartan 50 mg Tablet PO (17:09)
[2022-07-09] MEDS: sotalol 80 mg Tablet 160 MG PO (17:09)
[2022-07-09] MEDS: metformin 500 mg Tablet 1000 MG PO (17:09)
--- NOTE | 2022-07-09 17:48 | PC.OT ---
OT eval not completed on this day secondary to bedrest orders, will attempt tomorrow.
[2022-07-09] MEDS: ceFAZolin 2,000 MG in sodium chloride 0.9% (plus) 50 ML 100 MG IV (20:11)
[2022-07-09] MEDS: atorvastatin 40 mg Tablet 20 MG PO (20:12)
[2022-07-10 00:01] VITALS: BP 182/82; PULSE 66; RESP 20
--- NOTE | 2022-07-10 00:01 | PC.NURSE ---
Assisted patient up to bathroom. Noted patient's BP increases with exertion. Will continue to monitor
[2022-07-10] MEDS: ceFAZolin 2,000 MG in sodium chloride 0.9% (plus) 50 ML 100 MG IV ×2 (05:05→11:24)
[2022-07-10 05:16] VITALS: BP 173/78; PULSE 60; RESP 19
[2022-07-10 05:27] VITALS: PULSE 60
--- NOTE | 2022-07-10 05:48 | ECG_ITS ---
[facility] Test Date: 2022-07-10 Pat Name: Enrique Modi Department: Room: 104 Gender: Male Assistant Education Director: : 1935 Requested By: Skyler Patel Order Number: [id number] Marlon MD: Dario Haider M.D. Measurements Intervals [place] Rate: 59 P: 133 CT: 201 QRS: 58 QRSD: 90 T: 44 QT: 423 QTc: 422 Interpretive Statements ELECTRONIC ATRIAL PACEMAKER NONSPECIFIC ST & T-WAVE ABNORMALITY Compared to ECG 09/17/2021 13:43:02 T-wave abnormality now present Sinus rhythm no longer present ST (T wave) deviation no longer present Electronically Signed On 07-12-2022 18:31:11 RAW SILK GRADER by Dario Haider M.D. [id number]
[2022-07-10 08:18] VITALS: PULSE 63; RESP 14
--- NOTE | 2022-07-10 08:51 | P.DS_ITS ---
Discharge Providers Date of Admission: 07/09/2022 Date of Discharge: July 10, 2022 Attending Provider at Discharge: Skyler Patel MD Primary Care Provider: SIMONE Stewart Reason for Visit Reason for Visit: Z45.010 Brief History: 87-year-old man with past medical history of diabetes, atrial fibrillation had battery end of life indication and patient was scheduled for generator change out Hospital Course Hospital Course Successful generator change was done. Patient was kept in the hospital overnight and was stable for discharge. Physical Exam Narrative: GENERAL: Patient is alert, awake and oriented x3. [] NECK: No jugular vein distension. [] HEENT: No cyanosis. No icterus. No pallor. [] HEART: Regular S1 and S2. No murmur, rub or gallop. [] LUNGS: Clear to auscultate bilaterally. [] ABDOMEN: Soft, nontender and nondistended. Positive bowel sounds. No guarding, rebound or tenderness. [] CENTRAL NERVOUS SYSTEM: Grossly nonfocal. [] EXTREMITIES: Lower extremities with 1+ edema bilaterally. Pulses palpable in the lower extremities, both dorsalis pedis and posterior tibial. [] Discharge Data Studies Completed and Pending Completed Studies During Hospitalization Category Date Time Status PRE K SPECIAL EDUCATION TEACHER request for service Routine Exams 07/09/22 12:30 Completed Laboratory Results POC Glucose 119 mg/dL (70-110) H 07/09/22 11:29 Vitals Last Vital Signs Temp 98.5 F 07/09/22 15:20 Pulse 63 07/10/22 08:18 Resp 14 07/10/22 08:18 BP 173/78 07/10/22 05:16 Pulse Ox 97 07/09/22 18:30 O2 Del Method 07/10/22 00:01 Discharge Plan Discharge Patient Disposition: Home Prescriptions: Continued lovastatin 40 mg tablet 80 mg PO .HS gabapentin 300 mg capsule 300 mg PO DAILY magnesium oxide,aspartate,citr 400 mg magnesium capsule 400 mg PO DAILY calcium citrate 250 mg calcium tablet 250 mg PO DAILY ascorbic acid (vitamin C) 500 mg capsule 500 mg PO DAILY omeprazole 10 mg capsule,delayed release(DR/EC) 10 mg PO DAILY ferrous sulfate 325 mg (65 mg iron) tablet 325 mg PO DAILY zinc 50 mg tablet 50 mg PO DAILY verapamil 120 mg capsule,ext rel. pellets 24 hr 120 mg PO DAILY Qty: 90 3RF valsartan 160 mg tablet 160 mg PO BID MDD SEE PHARMACY COMMENTS Qty: 180 1RF sotalol 160 mg tablet 160 mg PO BID Qty: 60 3RF multivit,Ca,htjl-DU-pggwhh-lut [id number] ru-bfo-vjy-mcg Tablet 1 tab PO DAILY tamsulosin 0.4 mg Capsule 0.4 mg PO DAILY Januvia 50 mg tablet 50 mg PO DAILY metformin 1,000 mg Tablet 1,000 mg PO BID nitroglycerin 0.4 mg Tablet, Sublingual 0.4 mg SUBLINGUAL Q5M PRN (Reason: Chest Pain) Rx Instructions: do not exceed 3 doses per episode Held Xarelto 20 mg tablet 20 mg PO QPM Hold Instructions: Resume on 07/10/22. The evening of the Discharge Orders: Discharge Order (Routine); Ordered 07/10/22 Ordered By: Dario Haider Referrals: Jackelyn Galloway FNP [Nurse Practitioner] - 7-10 days (Please give [facility] a call on Tuesday to schedule a post Post Pacemaker procedure followup. Thank you) Diet: Advance as tolerated Activity: Limit activity as instructed Patient Instructions: Cephalexin (By mouth) (Bio-Cef, Keflex), Pacemaker (DC), Opioid Safety, Post Pacemaker - Jorge Activity Restrictions/Additional Instructions: The movements of the left shoulder to 45 degrees. Avoid any weightbearing in t he left elbow for the next 10 days. May keep the Covaderm dressing on till you come to the clinic. Please make an appointment to be seen at the clinic by the nurse practitioner on the Appointment with me as scheduled Keflex 500 mg p.o. every 6 hours for 5 days Multivitamin 1 tablet daily for 5 days Restart the Xarelto on the evening of Discharge Date/Time: 07/10/22 13:12 Discharge Attestations Time Spent in Discharge Care*: less than 30 min Quality Metrics Clinical Quality Measures [ No reported AMI, CVA or VTE this stay] Coding Level of Care Code Acute Chg FW DC note
[2022-07-10] MEDS: sotalol 80 mg Tablet 160 MG PO (09:37)
[2022-07-10 09:38] VITALS: BP 202/86
[2022-07-10] MEDS: pantoprazole DR 40 mg Tablet PO (09:38)
[2022-07-10] MEDS: metformin 500 mg Tablet 1000 MG PO (09:38)
[2022-07-10] MEDS: zinc gluconate 50 mg Tablet PO (09:38)
[2022-07-10] MEDS: ferrous sulfate EC 325 mg Tablet PO (09:38)
[2022-07-10] MEDS: ascorbic acid 500 mg Tablet PO (09:38)
[2022-07-10] MEDS: losartan 50 mg Tablet PO (09:38)
[2022-07-10] MEDS: gabapentin 300 mg Capsule PO (09:38)
[2022-07-10] MEDS: tamsulosin 0.4 mg Capsule PO (09:38)
[2022-07-10 11:42] VITALS: BP 149/77; PULSE 61; RESP 16; O2SAT 98
[2022-07-10] MEDS: cephALEXin 500 mg Capsule PO (12:17)
--- NOTE | 2022-07-10 12:18 | PC.NURSE ---
Patient IV infiltrated during last dose of cephazolin. Physician ordered kefelx 500mg PO once.
--- NOTE | 2022-07-10 12:25 | PC.NURSE ---
Discharge Note Patient discharged to home via wheelchair accompanied by family. Discharge instructions reviewed with patient and/or parts representative. Mobile pharmacy medications and/or prescriptions provided. Belongings/home medications returned.
== END 2022-07-10 13:12 | disposition home or self-care (01) ==
LOC: CCL 10:50 → CSU 14:25
PROVIDERS: PCP Nurse Practitioner Family; Visit Provider Internal Medicine Cardiovascular Disease
DX: Z45.010 Encounter for checking and testing of cardiac pacemaker pulse generator [battery] (principal); E11.9 Type 2 diabetes mellitus without complications; I48.91 Unspecified atrial fibrillation; I10 Essential (primary) hypertension; Z87.891 Personal history of nicotine dependence; R00.1 Bradycardia, unspecified
CPT/HCPCS: 33213; 33241; 36415; 36416; 82962; 93005; 96365; 96367; 97110; 99152; 99153; C1769; C1786; J0690; J2250; J3010; J3370; J7030; J7050

== ENCOUNTER → 2022-07-22 14:50 | Outpatient (BNVA) | payer MEDICARE, OTHER, SELFPAY | PROVIDERS: PCP Nurse Practitioner Family; Visit Provider Nurse Practitioner Family | DX: Z95.0 Presence of cardiac pacemaker (principal) | CPT/HCPCS: 93280; 99213 ==

== ENCOUNTER → 2022-08-27 08:32 | Outpatient (BNVA) | payer MEDICARE, OTHER, SELFPAY | PROVIDERS: PCP Nurse Practitioner Family; Visit Provider Internal Medicine | DX: I10 Essential (primary) hypertension (principal); I48.91 Unspecified atrial fibrillation; Z95.0 Presence of cardiac pacemaker | CPT/HCPCS: 93280; 99214 ==

== ENCOUNTER → 2022-10-25 13:40 | Outpatient (BNVA) | payer MEDICARE, OTHER, SELFPAY | PROVIDERS: PCP Nurse Practitioner Family; Visit Provider Urology | DX: R33.9 Retention of urine, unspecified (principal) | CPT/HCPCS: 51798; 81003; 99213 ==

== ENCOUNTER 2023-01-25 07:15 | Outpatient (CLI) | payer MEDICARE, OTHER, SELFPAY ==
--- NOTE | 2023-01-25 07:24 | CT_ITS ---
WS: [id number] CT HEAD TECHNIQUE: Noncontrast CT of the head obtained from the skullbase to the vertex. CLINICAL INFORMATION: DEMENTIA, DIABETES, IMPACTED CERUMEN RIGHT EAR COMPARISON: September 17, 2021 DLP: 1033.[address] scans at [facility] [place] use at least one of these dose optimization techniques: automated e xposure control; mA and/or kV adjustment per patient size (includes targeted exams where dose is matc hed to clinical indication); or iterative reconstruction. FINDINGS: No evidence of intracranial hemorrhage or mass effect. Ventricular system and basal cisterns are dumont nt. Advanced small vessel changes with moderate parenchymal volume loss. 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 No extra-axial fluid collections. No evidence of mass o r mass effect. Mild mucosal thickening in the paranasal sinuses. Fluid within the RIGHT sphenoid sinus. Mastoid air cells well aerated. Vascular calcification. CT/CT head wo con* [id number] IMPRESSION: 1. No evidence of intracranial hemorrhage or mass effect. 2. Advanced small vessel changes with moderate parenchymal volume loss. 3. 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 4. Fluid within the RIGHT sphenoid sinus with chronic bony remodeling consiste nt with chronic sinusitis. 5. Mastoid air cells well aerated. 6. Overall no significant changes from previous.
== END 2023-01-25 07:16 | disposition home or self-care (01) ==
PROVIDERS: PCP Nurse Practitioner Family; Visit Provider Nurse Practitioner Family
DX: F03.90 Unspecified dementia, unspecified severity, without behavioral disturbance, psychotic disturbance, mood disturbance, and anxiety (principal); E11.9 Type 2 diabetes mellitus without complications; H61.21 Impacted cerumen, right ear; J34.9 Unspecified disorder of nose and nasal sinuses; Z86.73 Personal history of transient ischemic attack (TIA), and cerebral infarction without residual deficits
CPT/HCPCS: 70450

== ENCOUNTER → 2023-02-25 11:19 | Outpatient (BNVA) | payer MEDICARE, OTHER, SELFPAY | PROVIDERS: PCP Nurse Practitioner Family; Visit Provider Internal Medicine | DX: I48.91 Unspecified atrial fibrillation (principal); I10 Essential (primary) hypertension; Z87.891 Personal history of nicotine dependence; Z95.0 Presence of cardiac pacemaker; Z79.01 Long term (current) use of anticoagulants; W19.XXXA Unspecified fall, initial encounter; X58.XXXA Exposure to other specified factors, initial encounter | CPT/HCPCS: 99214 ==

== ENCOUNTER → 2023-09-16 08:59 | Outpatient (BNVA) | payer MEDICARE, OTHER, SELFPAY | PROVIDERS: PCP Nurse Practitioner Family; Visit Provider Nurse Practitioner Family | DX: I48.0 Paroxysmal atrial fibrillation (principal); I10 Essential (primary) hypertension; Z95.0 Presence of cardiac pacemaker; Z87.891 Personal history of nicotine dependence | CPT/HCPCS: 99214 ==

== ENCOUNTER 2023-12-29 10:40 | Emergency (ER) | payer MEDICARE, OTHER, SELFPAY ==
[2023-12-29] VITALS (7 sets, daily range): BP systolic 151–182; BP diastolic 71–94; PULSE 60–69; RESP 14–18; TEMP 36.3; O2SAT 95–100
--- NOTE | 2023-12-29 10:46 | CT_ITS ---
WS: [id number] CT HEAD NONCONTRAST HISTORY: ams TECHNIQUE: Contiguous axial imaging performed through the brain in 2.5 mm imaging. Bone and soft tiss ue windows. Sagittal and coronal reformats reviewed. All CT scans at [facility] use at least one of these dose optimization techniques: automated exposure control; mA and/or kV adjustment per pa tient size (includes targeted exams where dose is matched to clinical indication); or iterative recon struction. DLP: 1086.93 mGy.cm COMPARISON: 01/25/2023 No acute intracranial hemorrhage, midline shift or mass effect. Advanced small vessel ischemic changes with moderate volume loss. Volume loss is similar to the prior examination. Small vessel disease has progressed. There is a new infarct since 01/25/2023 involving th e RIGHT occipital and inferior temporal lobe. This may be a subacute infarct but not acute. Bilateral thalamic infarcts. Lacunar infarct in the LEFT caudate. Ventricles: Mildly prominent ventricles. No inferior displacement of the cerebellar tonsils. Paranasal sinuses: Mucoperiosteal thickening RIGHT sphenoid sinus. Mastoid air cells: Well pneumatized. Calvarium and scalp: Skull is intact with no soft tissue edema or swelling. CT/CT head wo con* [id number] IMPRESSION: 1. No acute intracranial hemorrhage or edema. 2. Subacute to remote RIGHT occipital and inferior temporal lobe infarct since 01/25/2023. 3. Mild progression of small vessel ischemic disease since 01/25/2023. 4. Bilateral thalamic lacunar infarcts and LEFT caudate lacunar infarct are st able.
--- NOTE | 2023-12-29 10:46 | XR_ITS ---
WS: [id number] Portable AP upright chest, 12/29/2023 Clinical Data: ams Comparison: Portable chest, 09/17/2021 Findings: No nodules, masses or effusions are seen. The heart is normal. The pulmonary vascularity is not increased. No pneumonia or pneumothorax is seen. There is a permanent cardiac pacemaker with the wires leading into the heart. The aortic arch and descending thoracic aorta show mild tortuosity. XR/XR chest 1V portable [id number] Impression: Cardiac pacemaker and atherosclerosis.
--- NOTE | 2023-12-29 10:47 | ED_ITS ---
HPI - Altered Mental Status 2 General: Chief Complaint: Altered Mental Status Stated Complaint: ams Time Seen by Provider: 12/29/23 10:41 Source: EMS Mode of arrival: EMS Limitations: altered mental status History of Present Illness: 88-year-old male does have a history of dementia he lives home alone family states he had found him this morning wadded up in his bed and was extremely confused. Per EMS he is able to tell him his name and where he is at but does not know the year. He is quite confused with me he is able to tell his me his name he does not know the year does not know the president does not know what hospital he is at currently. He did have a fall last week was not seen Review of Systems 2 General: Reports: ROS unobtainable due to mental status PFSH ED 2 PFSH: Medical History History of nonmelanoma skin cancer Incomplete bladder emptying Gross hematuria Diabetes Essential hypertension Atrial fibrillation Elevated PSA Surgical History S/P cataract extraction S/P placement of cardiac pacemaker Family History Father , 57 No problems noted. Mother , 59 No problems noted. Social History Smoking and tobacco/nicotine status: former use of tobacco/nicotine (35 years ago) Alcohol intake: never Substance/Drug Use: unknown Adopted: No Caregiver/support person: No Lives independently: Yes Marital status: / Current occupational status: retired Current gender identity: Male Physical Exam 2 Const: COMMON NORMALS: alert; negative for patient oriented x3 EXAM LIMITATIONS: altered mental status O RIENTATION/CONSCIOUSNESS: Yes oriented to person; not oriented to place and not oriented to time HENMT: COMMON NORMALS: normocephalic and atraumatic HEAD & SCALP: n ormocephalic and atraumatic Eye: COMMON NORMALS: Equal, round and reactive pupils present and EOMs intact bilaterally PUPIL: Yes Equal, round and reactive pupils present Neck/C-Spine: COMMON NORMALS: full ROM and supple Chest: COMMONS NORMALS: normal inspection of the chest and normal palpation of entire chest wall Resp: COMMON NORMALS: normal respiratory effort, No retractions, No use of accessory muscles and clear to auscultation bilaterally AUSCULTATION: clear to auscultation bilaterally Cardio: COMMON NORMALS: regular rate, regular rhythm and No murmurs present (Cardio) RATE: regular rate RHYTHM: regular rhythm GI: COMMON NORMALS: Normal to inspection, nondistended, normoactive bowel sounds present, Soft to palpation, non-tender and no masses PALPATION: Yes Soft to palpation Extremity: COMMON NORMALS: normal to inspection and full ROM Neuro: COMMON NORMALS: moves all extremities and no focal motor deficits; negative for patient oriented x3 SENSORIUM/ORIENTATION: Yes alert, Yes oriented to person, No oriented to place and No oriented to time Psych: COMMON NORMALS: mental status grossly normal, Normal thought process present and cooperative THOUGHT PROCESS: Normal thought process present Skin: COMMON NORMALS: no rashes or lesions noted and no wounds GENERAL SKIN EXAM: no rashes or lesions noted Course 2 Vital Signs: Vital signs: Vital Signs Temperature 97.4 F L 12/29/23 10:51 Pulse Rate 65 12/29/23 14:14 Respiratory Rate 17 12/29/23 14:14 Blood Pressure 166/71 12/29/23 14:14 Pulse Oximetry 99 12/29/23 14:14 Oxygen Delivery Me thod Room Air 12/29/23 12:30 MDM - Altered Mental Status Medical Decision Making Patient presents here with dementia some increased altered mental status family is wanting patient placed in a snf due to him not being able to take care of himself his workup here is negative was able to get him placed at [facility] discharged him and family is transporting him there Medical Records I reviewed the patient's medical records. Lab Data I reviewed the patient's lab results. 12/29/23 10:47 12/29/23 10:47 Radiology Impressions Chest X-Ray 12/29/23 10:46 Impression: Cardiac pacemaker and atherosclerosis. Head CT 12/29/23 10:46 IMPRESSION: 1. No acute intracranial hemorrhage or edema. 2. Subacute to remote RIGHT occipital and inferior temporal lobe infarct since 01/25/2023. 3. Mild progression of small vessel ischemic disease since 01/25/2023. 4. Bilateral thalamic lacunar infarcts and LEFT caudate lacunar infarct are stable. Laboratory Results WBC 8.10 10^3/uL (3.29-11.43) 12/29/23 10:47 RBC 4.76 10^6/uL (3.85-5.65) 12/29/23 10:47 Hgb 13.70 g/dL (11.27-16.99) 12/29/23 10:47 Hct 41.4 % (37-53) 12/29/23 10:47 MCV 87.0 fl (82-101) 12/29/23 10:47 MCH 28.8 pg (27-33) 12/29/23 10:47 MCHC 33.1 g/dL (30-55) 12/29/23 10:47 RDW 13.5 % (12.1-15.1) 12/29/23 10:47 Plt Count 232 10^3/cmm (157-399) 12/29/23 10:47 MPV 11.9 fL (7.4-10.4) H 12/29/23 10:47 Neut % (Auto) 80.9 % 12/29/23 10:47 Lymph % (Auto) 12.3 % 12/29/23 10:47 [place] % (Auto) 5.6 % 12/29/23 10:47 Eos % (Auto) 0.4 % 12/29/23 10:47 Baso % (Auto) 0.4 % 12/29/23 10:47 Neut # (Auto) 6.56 10^3/uL (1.8-7.7) 12/29/23 10:47 Lymph # (Auto) 1.0 10^3/uL (0.8-4.8) 12/29/23 10:47 [place] # (Auto) 0.5 10^3/uL (0.2-0.9) 12/29/23 10:47 Eos # (Auto) 0.0 10^3/uL (0.0-0.8) 12/29/23 10:47 Baso # (Auto) 0.0 10^3/uL (0.0-0.1) 12/29/23 10:47 Nucleated RBC % (auto) 0 % 12/29/23 10:47 Nucleated RBCs # 0.0 /100WBC 12/29/23 10:47 PT 21.70 SECONDS (12.1-14.9) H 12/29/23 10:47 INR 1.82 (0.8-1.2) H 12/29/23 10:47 Sodium 138 mmol/L (136-145) 12/29/23 10:47 Potassium 4.1 mmol/L (3.5-5.1) 12/29/23 10:47 Chloride 101 mmol/L (98-107) 12/29/23 10:47 Carbon Dioxide 27 mmol/L (22-29) 12/29/23 10:47 Anion Gap 14.1 (5-19) 12/29/23 10:47 BUN 20 mg/dL (8-23) 12/29/23 10:47 Creatinine 1.0 mg/dL (0.7-1.2) 12/29/23 10:47 GFR Calculation Not Reportable 12/29/23 10:47 Glucose 173 mg/dL (65-115) H 12/29/23 10:47 POC Glucose 192 mg/dL (70-110) H 12/29/23 10:46 Calculated Osmolality 293 mOsm/kg (285-295) 12/29/23 10:47 Calcium 9.5 mg/dL (8.5-10.5) 12/29/23 10:47 Magnesium 1.6 mg/dL (1.7-2.3) L 12/29/23 10:47 Total Bilirubin 0.6 mg/dL (0.15-1.2) 12/29/23 10:47 AST 18 U/L (0-40) 12/29/23 10:47 ALT 12 U/L (0-41) 12/29/23 10:47 Alkaline Phosphatase 70 U/L (40-130) 12/29/23 10:47 Creatine Kinase 144 U/L (39-308) 12/29/23 10:47 NT-Pro-B Natriuret Pep 1087 pg/mL (0-450) H 12/29/23 10:47 Total Protein 6.9 g/dL (6.6-8.7) 12/29/23 10:47 Albumin 4.0 g/dL (3.5-5.2) 12/29/23 10:47 Globulin 2.9 g/dL (1.3-4.6) 12/29/23 10:47 TSH 1.51 uIU/mL (0.27-4.20) 12/29/23 10:47 Urine Color Light yellow (Yellow) 12/29/23 11:04 Urine Appearance Clear (CLEAR) 12/29/23 11:04 Urine pH 6 (5-7) 12/29/23 11:04 Ur Specific [place] 1.005 (1.005-1.030) 12/29/23 11:04 Urine Protein Neg (Negative) 12/29/23 11:04 Urine Glucose (UA) Norm (Normal) 12/29/23 11:04 Urine Ketones Negative (Negative) 12/29/23 11:04 Urine Blood Neg (Negative) 12/29/23 11:04 Urine Nitrate Negative (Negative) 12/29/23 11:04 Urine Bilirubin Neg (Negative) 12/29/23 11:04 Urine Urobilinogen Norm mg/dL (Negative) 12/29/23 11:04 Ur Leukocyte Esterase Negative (Negative) 12/29/23 11:04 Ethyl Alcohol < 10 mg/dL (0-10) 12/29/23 10:47 All radiology interpretation(s) finalized by discharge EKG Data EKG 1: I personally reviewed and interpreted this EKG as follows: EKG interpretation date: 12/29/23 EKG interpretation time: 10:49 Interpretation: paced hr [address] elevation qrs 88 qtc 451 Discharge Plan Discharge Patient Disposition: Home Clinical Impression: Altered mental status, Dementia Condition: Stable Prescriptions: No Action lovastatin 40 mg tablet 80 mg PO QPM magnesium oxide,aspartate,citr 400 mg magnesium capsule 400 mg PO DAILY calcium citrate 250 mg calcium tablet 250 mg PO DAILY ascorbic acid (vitamin C) 500 mg capsule 500 mg PO DAILY omeprazole 10 mg capsule,delayed release(DR/EC) 10 mg PO DAILY finasteride 5 mg tablet 5 mg PO DAILY verapamil 120 mg capsule,ext rel. pellets 24 hr 120 mg PO DAILY Qty: 90 3RF sotalol 160 mg tablet 160 mg PO BID Qty: 60 3RF multivit,Ca,vkiz-MJ-oizifi-lut [phone] th-skh-dqa-mcg Tablet 1 tab PO DAILY Januvia 50 mg tablet 50 mg PO DAILY Xarelto 20 mg tablet 20 mg PO QPM Hold Instructions: Resume on 07/10/22. The evening of the metformin 1,000 mg Tablet 1,000 mg PO BID nitroglycerin 0.4 mg Tablet, Sublingual 0.4 mg SUBLINGUAL Q5M PRN (Reason: Chest Pain) Rx Instructions: do not exceed 3 doses per episode zinc acetate 50 mg (zinc) Capsule 50 mg PO DAILY Discharge Orders: Discharge ED (Routine); Ordered 12/29/23 Ordered By: Lyndsey Walker Referrals: Goff,Aysha, SLIDE MACHINE TENDER [Primary Care Provider] - 1-3 days Discharge Diet: Advance as tolerated Discharge Activity: Resume usual activity Patient Instructions: Dementia (ED), Altered Mental Status (ED) Coding Level of Care Code ED Drag Sawyer for Srinivasa Carlson
--- NOTE | 2023-12-29 10:49 | ECG_ITS ---
[facility] Test Date: 2023-12-29 Pat Name: Enrique Modi Department: Room: Gender: Male Distribution Associate: : 1935 Requested By: Lyndsey Walker Order Number: [id number] Marlon MD: Dario Haider M.D. Measurements Intervals [place] Rate: 63 P: 186 MO: 206 QRS: 73 QRSD: 88 T: 84 QT: 443 QTc: 456 Interpretive Statements ELECTRONIC ATRIAL PACEMAKER ST DEPRESSION, CONSIDER SUBENDOCARDIAL INJURY [0.1+ mV ST DEPRESSION] Compared to ECG 07/10/2022 05:48:35 ST (T wave) deviation now present T-wave abnormality no longer present Electronically Signed On 12-29-2023 17:12:35 CDT by Dario Haider M.D. [email or web address]
--- NOTE | 2023-12-29 10:50 | PC.NURSE ---
pt glucose: 192 via fingerstick
[2023-12-29 10:51] LABS: Glucose Point of Care 192 mg/dL (70-110)
[2023-12-29 10:53] LABS: Basophils % 0.4 %; Eosinophils % 0.4 %; Hematocrit 41.4 % (37-53); Lymphocytes % 12.3 %; Mean Corpuscular HGB Conc 33.1 g/dL (30-55); Mean Corpuscular Hemoglobin 28.8 pg (27-33); Mean Platelet Volume 11.9 fL (7.4-10.4); Monocytes # 0.5 10^3/uL (0.2-0.9); Monocytes % 5.6 %; Neutrophils # 6.56 10^3/uL (1.8-7.7); Neutrophils % 80.9 %; Nucleated Red Blood Cells % 0 %; Platelet Count 232 10^3/cmm (157-399); Red Blood Count 4.76 10^6/uL (3.85-5.65); Red Cell Distribution Width 13.5 % (12.1-15.1)
--- NOTE | 2023-12-29 11:09 | PC.PHAR ---
pt unable to verify medications- medications verified with last filled and picked up with [facility] and pts family- pts family sts pt has home health nurse but is unable to confirm the name of the company
[2023-12-29 11:14] LABS: INR 1.82 (0.8-1.2)
[2023-12-29 11:15] LABS: Add Urine Microscopic? NO; Charge for UA Resulting for Rev
[2023-12-29 11:31] LABS: Alanine Aminotransferase 12 U/L (0-41); Alkaline Phosphatase 70 U/L (40-130); Anion Gap 14.1 (5-19); Aspartate Amino Transferase 18 U/L (0-40); Blood Urea Nitrogen 20 mg/dL (8-23); Calcium 9.5 mg/dL (8.5-10.5); Carbon Dioxide 27 mmol/L (22-29); Chloride 101 mmol/L (98-107); Creatine Phosphokinase 144 U/L (39-308); Creatinine Clr Calc Pharmacy 51.8433; Globulin 2.9 g/dL (1.3-4.6); Glucose 173 mg/dL (65-115); Magnesium 1.6 mg/dL (1.7-2.3); NT Pro B Type Natriuretic Pept 1087 pg/mL (0-450); Osmolality Calculated 293 mOsm/kg (285-295); Potassium 4.1 mmol/L (3.5-5.1); Sodium 138 mmol/L (136-145); Thyroid Stimulating Hormone 1.51 uIU/mL (0.27-4.20); Total Bilirubin 0.6 mg/dL (0.15-1.2); Total Protein 6.9 g/dL (6.6-8.7)
[2023-12-29 11:33] LABS: Alcohol Level < 10 mg/dL (0-10)
[2023-12-29 11:39] LABS: Bilirubin Urine Neg (Negative); Blood Urine Neg (Negative); Glucose Urine UA Norm (Normal); Ketones Urine Negative (Negative); Leukocyte Esterase Urine Negative (Negative); Nitrate Urine Negative (Negative); Protein Urine Neg (Negative); Specific Gravity, Urine 1.005 (1.005-1.030); Urine Appearance Clear (CLEAR); Urine Color Light yellow (Yellow); Urobilinogen Urine Norm (Negative); pH Urine 6 (5-7)
[2023-12-29] MEDS: hyDRALAzine 20 mg/mL INJ 1 mL 10 MG IVP (12:20)
--- NOTE | 2023-12-29 12:20 | PC.SOCIAL ---
Faxed [facility] Dr Walker called & said pt needs a snf & family doesn't think they can care for him at home. Industrial Twisting Machine Operator followed up with pt & his daughter Sunshine. She said they are willing to private pay at [facility] & they were trying to get him into the assisted living there. A choice letter signed & placed in in chart. Faxed [facility] pt's ER notes. Called [facility], Asmra was not available, updated their finance lady. She said she will let Samra know & will follow back up with the ER if they can accept or not. No other needs noted for CM.
--- NOTE | 2023-12-29 12:27 | PC.NURSE ---
per Gisele in Case Management that paperwork regarding long-term care placement would be faxed to [facility], pending [facility] to review.
--- NOTE | 2023-12-29 14:44 | PC.SOCIAL ---
CM spoke to Samra at [facility] who stated they could accept patient but needed family to be made aware that it will cost $200 a day. Daughter in agreeance with it. And state they will transfer, but will need help getting him out at [facility]. CM called Samra and left a message that patient is good to come and they will need help getting him out of car. Discharge orders faxed
== END 2023-12-29 14:50 | disposition home or self-care (01) ==
PROVIDERS: Emergency Provider Emergency Medicine; PCP Nurse Practitioner Family
DX: R41.82 Altered mental status, unspecified (principal); F03.90 Unspecified dementia, unspecified severity, without behavioral disturbance, psychotic disturbance, mood disturbance, and anxiety; Z79.84 Long term (current) use of oral hypoglycemic drugs; Z87.891 Personal history of nicotine dependence; E11.9 Type 2 diabetes mellitus without complications; I10 Essential (primary) hypertension; Z95.0 Presence of cardiac pacemaker
CPT/HCPCS: 36416; 70450; 71045; 80053; 80307; 81003; 82550; 82962; 83735; 83880; 84443; 85025; 85610; 93005; 96374; 99285; J0360